=== PATIENT | male | born 1945 | race Caucasian/White ===

== ENCOUNTER 2021-03-12 11:54 | Inpatient (IN) ==
[2021-03-12] MEDS ORDERED: Miconazole 2% ointment 141 APPL/141 GM TUBE TP PRN (18:03)
[2021-03-12] MEDS ORDERED: Simethicone 80 MG TAB.CHEW PO PRN (18:03)
[2021-03-12] MEDS ORDERED: *HR* Dextrose 50 % in Water (Vial) 50 ML VIAL IVP PRN (18:07)
[2021-03-12] MEDS ORDERED: Dextrose Gel 15 GM/37.5 ML TUBE PO PRN ×2 (18:07)
[2021-03-12] MEDS ORDERED: D5% in Water 1,000 ML IVC PRN (18:07)
[2021-03-12] MEDS: methocarbamoL 500 MG TABLET PO PRN (20:44)
[2021-03-12] MEDS: *HR* LORazepam 0.5 MG TABLET PO PRN (20:44)
[2021-03-12] MEDS: Gabapentin 100 MG CAPSULE PO SCH (20:44)
[2021-03-12] MEDS: Carbidopa/Levodopa 25/100 TABLET PO SCH ×2 (20:45→23:20)
[2021-03-12] MEDS ORDERED: Insulin DETEMIR 100 UNIT/ML per UNIT SUBQ ONE (21:00)
[2021-03-12] MEDS: Sennosides/Docusate Sodium TABLET PO PRN (22:47)
[2021-03-12] MEDS: traZODone 50 MG TABLET PO PRN (22:47)
[2021-03-12] MEDS: *HR* Pioglitazone 30 MG TABLET PO SCH (22:48)
[2021-03-12] MEDS: *HR* OxyCODONE Immed Rel 5 MG TABLET PO PRN (22:48)
[2021-03-12] MEDS: Venlafaxine XR (24 HR) 75 MG CAP.ER.24H PO SCH (22:48)
[2021-03-12] MEDS: *HR* Metformin 500 MG TABLET PO SCH (22:48)
[2021-03-12] MEDS: Melatonin 3 MG TABLET PO SCH (22:48)
[2021-03-13] MEDS: *HR* Enoxaparin 40 MG/0.4 ML SYRINGE SQ SCH (05:35)
[2021-03-13 05:44] LABS: Basophils % 0.5 %; Eosinophils # 0.6 K/mcL (0.0-0.6); Eosinophils % 6.7 %; Hematocrit 39.5 % (37.5-50.1); Hemoglobin 12.8 g/dL (12.9-16.9); Immature Granulocytes % 0.7 % (0-4); Lymphocytes # 2.2 K/mcL (0.6-4.6); Lymphocytes % 26.2 %; Mean Corpuscular HGB Conc 32.4 g/dL (31.6-35.5); Mean Corpuscular Hemoglobin 32.9 pg (28.0-33.3); Mean Corpuscular Volume 101.5 fL (83.0-100.0); Mean Platelet Volume 8.8 fL (9.4-12.4); Monocytes # 0.9 K/mcL (0.0-1.3); Monocytes % 10.6 %; Neutrophils # 4.6 K/mcL (1.6-8.9); Platelet Count 288 K/mcL (140-400); Red Blood Count 3.89 M/mcL (4.19-5.50); Red Cell Distribution Width 13.8 % (11.5-14.5); Segmented Neutrophils % 55.3 %; White Blood Count 8.2 K/mcL (4.3-11.1)
[2021-03-13 05:59] LABS: Calcium 9.3 mg/dL (8.6-10.3); Potassium 4.2 mEq/L (3.5-5.1)
[2021-03-13] MEDS: allopurinoL 300 MG TABLET PO SCH (08:50)
[2021-03-13] MEDS: Venlafaxine XR (24 HR) 150 MG CAP.ER.24H PO SCH (08:50)
[2021-03-13] MEDS: Aspirin Enteric Coated 81 MG Tablet PO SCH (08:50)
[2021-03-13] MEDS: *HR* Metformin 500 MG TABLET PO SCH ×2 (08:50→20:22)
[2021-03-13] MEDS: Multivit/Ca/Min/Fe/FA 1 TAB TABLET PO SCH (08:51)
[2021-03-13] MEDS: Carbidopa/Levodopa 25/100 TABLET PO SCH ×5 (08:51→23:22)
[2021-03-13] MEDS: Cholecalciferol (D-3) 1,000 UNIT (25MCG) TABLET PO SCH (08:51)
[2021-03-13] MEDS: Gabapentin 100 MG CAPSULE PO SCH ×2 (08:51→20:22)
[2021-03-13] MEDS: Insulin LISPRO 300 UNITS/3 ML VIAL SUBQ SCH ×3 (08:52→17:01)
[2021-03-13] MEDS: Insulin DETEMIR 100 UNIT/ML X5UNITS SUBQ SCH ×2 (08:52→20:20)
[2021-03-13] MEDS: Clotrimazole 1% CRM 15 GM TUBE TP SCH ×2 (08:53→21:19)
[2021-03-13] MEDS: Potassium Citrate 10 MEQ TABLET.ER PO SCH ×2 (08:53→21:20)
[2021-03-13] MEDS: *HR* OxyCODONE Immed Rel 5 MG TABLET PO PRN ×3 (10:58→23:22)
[2021-03-13] MEDS: Finasteride 5 MG TABLET PO SCH (17:00)
[2021-03-13] MEDS: Melatonin 3 MG TABLET PO SCH (20:21)
[2021-03-13] MEDS: *HR* Pioglitazone 30 MG TABLET PO SCH (20:21)
[2021-03-13] MEDS: methocarbamoL 500 MG TABLET PO PRN (20:22)
[2021-03-13] MEDS: Venlafaxine XR (24 HR) 75 MG CAP.ER.24H PO SCH (20:22)
[2021-03-13] MEDS: Sennosides/Docusate Sodium TABLET PO PRN (20:22)
[2021-03-13] MEDS: traZODone 50 MG TABLET PO PRN (23:23)
[2021-03-14] MEDS: *HR* Enoxaparin 40 MG/0.4 ML SYRINGE SQ SCH (06:18)
[2021-03-14] MEDS: Gabapentin 100 MG CAPSULE PO SCH ×2 (08:13→20:26)
[2021-03-14] MEDS: Potassium Citrate 10 MEQ TABLET.ER PO SCH ×2 (08:13→20:26)
[2021-03-14] MEDS: *HR* OxyCODONE Immed Rel 5 MG TABLET PO PRN ×3 (08:13→20:32)
[2021-03-14] MEDS: Carbidopa/Levodopa 25/100 TABLET PO SCH ×4 (08:14→20:26)
[2021-03-14] MEDS: Venlafaxine XR (24 HR) 150 MG CAP.ER.24H PO SCH (08:14)
[2021-03-14] MEDS: Aspirin Enteric Coated 81 MG Tablet PO SCH (08:14)
[2021-03-14] MEDS: allopurinoL 300 MG TABLET PO SCH (08:14)
[2021-03-14] MEDS: Cholecalciferol (D-3) 1,000 UNIT (25MCG) TABLET PO SCH (08:14)
[2021-03-14] MEDS: *HR* Metformin 500 MG TABLET PO SCH ×2 (08:14→20:26)
[2021-03-14] MEDS: Clotrimazole 1% CRM 15 GM TUBE TP SCH ×2 (08:15→20:33)
[2021-03-14] MEDS: Multivit/Ca/Min/Fe/FA 1 TAB TABLET PO SCH (08:15)
[2021-03-14] MEDS: Insulin LISPRO 300 UNITS/3 ML VIAL SUBQ SCH ×3 (08:16→16:30)
[2021-03-14] MEDS: Insulin DETEMIR 100 UNIT/ML X5UNITS SUBQ SCH ×2 (10:54→20:25)
[2021-03-14] MEDS: *HR* LORazepam 0.5 MG TABLET PO PRN (10:59)
[2021-03-14] MEDS: methocarbamoL 500 MG TABLET PO PRN (16:29)
[2021-03-14] MEDS: Finasteride 5 MG TABLET PO SCH (16:29)
[2021-03-14] MEDS: Venlafaxine XR (24 HR) 75 MG CAP.ER.24H PO SCH (20:26)
[2021-03-14] MEDS: *HR* Pioglitazone 30 MG TABLET PO SCH (20:26)
[2021-03-14] MEDS: Melatonin 3 MG TABLET PO SCH (20:26)
[2021-03-14] MEDS: Sennosides/Docusate Sodium TABLET PO PRN (20:32)
[2021-03-15] MEDS: Carbidopa/Levodopa 25/100 TABLET PO SCH ×5 (00:10→21:25)
[2021-03-15] MEDS: traZODone 50 MG TABLET PO PRN (00:12)
[2021-03-15] MEDS: *HR* Enoxaparin 40 MG/0.4 ML SYRINGE SQ SCH (05:48)
[2021-03-15] MEDS: Venlafaxine XR (24 HR) 150 MG CAP.ER.24H PO SCH (08:51)
[2021-03-15] MEDS: allopurinoL 300 MG TABLET PO SCH (08:51)
[2021-03-15] MEDS: Potassium Citrate 10 MEQ TABLET.ER PO SCH ×2 (08:51→21:25)
[2021-03-15] MEDS: Multivit/Ca/Min/Fe/FA 1 TAB TABLET PO SCH (08:51)
[2021-03-15] MEDS: *HR* OxyCODONE Immed Rel 5 MG TABLET PO PRN (08:51)
[2021-03-15] MEDS: Gabapentin 100 MG CAPSULE PO SCH ×2 (08:51→21:26)
[2021-03-15] MEDS: Cholecalciferol (D-3) 1,000 UNIT (25MCG) TABLET PO SCH (08:53)
[2021-03-15] MEDS: Aspirin Enteric Coated 81 MG Tablet PO SCH (08:53)
[2021-03-15] MEDS: *HR* Metformin 500 MG TABLET PO SCH ×2 (08:53→21:25)
[2021-03-15] MEDS: Insulin LISPRO 300 UNITS/3 ML VIAL SUBQ SCH ×3 (08:57→16:23)
[2021-03-15] MEDS: Insulin DETEMIR 100 UNIT/ML X5UNITS SUBQ SCH ×2 (08:59→21:26)
[2021-03-15] MEDS: Clotrimazole 1% CRM 15 GM TUBE TP SCH ×2 (12:55→21:26)
[2021-03-15] MEDS: Finasteride 5 MG TABLET PO SCH (16:20)
[2021-03-15] MEDS: Venlafaxine XR (24 HR) 75 MG CAP.ER.24H PO SCH (21:25)
[2021-03-15] MEDS: *HR* LORazepam 0.5 MG TABLET PO PRN (21:25)
[2021-03-15] MEDS: Melatonin 3 MG TABLET PO SCH (21:25)
[2021-03-15] MEDS: *HR* Pioglitazone 30 MG TABLET PO SCH (21:26)
[2021-03-16] MEDS: *HR* OxyCODONE Immed Rel 5 MG TABLET PO PRN (00:39)
[2021-03-16] MEDS: Sennosides/Docusate Sodium TABLET PO PRN (00:39)
[2021-03-16] MEDS: Carbidopa/Levodopa 25/100 TABLET PO SCH ×5 (00:40→20:24)
[2021-03-16] MEDS: *HR* Enoxaparin 40 MG/0.4 ML SYRINGE SQ SCH (05:46)
[2021-03-16 07:05] LABS: Hematocrit 38.2 % (37.5-50.1); Hemoglobin 12.5 g/dL (12.9-16.9); Mean Corpuscular HGB Conc 32.7 g/dL (31.6-35.5); Mean Corpuscular Hemoglobin 33.2 pg (28.0-33.3); Mean Corpuscular Volume 101.6 fL (83.0-100.0); Mean Platelet Volume 8.7 fL (9.4-12.4); Platelet Count 328 K/mcL (140-400); Red Blood Count 3.76 M/mcL (4.19-5.50); Red Cell Distribution Width 13.7 % (11.5-14.5); White Blood Count 8.1 K/mcL (4.3-11.1)
[2021-03-16 07:38] LABS: Calcium 9.8 mg/dL (8.6-10.3); Magnesium 2.3 mg/dL (1.6-2.6); Potassium 4.6 mEq/L (3.5-5.1)
[2021-03-16] MEDS: *HR* Metformin 500 MG TABLET PO SCH ×2 (09:26→20:24)
[2021-03-16] MEDS: Potassium Citrate 10 MEQ TABLET.ER PO SCH ×2 (09:26→20:24)
[2021-03-16] MEDS: Multivit/Ca/Min/Fe/FA 1 TAB TABLET PO SCH (09:26)
[2021-03-16] MEDS: Cholecalciferol (D-3) 1,000 UNIT (25MCG) TABLET PO SCH (09:26)
[2021-03-16] MEDS: allopurinoL 300 MG TABLET PO SCH (09:26)
[2021-03-16] MEDS: Gabapentin 100 MG CAPSULE PO SCH ×2 (09:26→20:24)
[2021-03-16] MEDS: Venlafaxine XR (24 HR) 150 MG CAP.ER.24H PO SCH (09:26)
[2021-03-16] MEDS: Aspirin Enteric Coated 81 MG Tablet PO SCH (09:26)
[2021-03-16] MEDS: Clotrimazole 1% CRM 15 GM TUBE TP SCH ×2 (09:27→20:26)
[2021-03-16] MEDS: Insulin LISPRO 300 UNITS/3 ML VIAL SUBQ SCH ×3 (09:42→17:12)
[2021-03-16] MEDS: Insulin DETEMIR 100 UNIT/ML X5UNITS SUBQ SCH ×2 (09:42→20:27)
[2021-03-16] MEDS: Finasteride 5 MG TABLET PO SCH (17:11)
[2021-03-16] MEDS ORDERED: NON-FORMULARY MEDICATION 1 EACH EACH (Alendronate Sodium 70 MG Tablet) PO SCH (18:03)
[2021-03-16] MEDS: Venlafaxine XR (24 HR) 75 MG CAP.ER.24H PO SCH (20:23)
[2021-03-16] MEDS: Melatonin 3 MG TABLET PO SCH (20:24)
[2021-03-16] MEDS: *HR* Pioglitazone 30 MG TABLET PO SCH (20:24)
[2021-03-17] MEDS: Sennosides/Docusate Sodium TABLET PO PRN ×2 (00:10→20:04)
[2021-03-17] MEDS: Carbidopa/Levodopa 25/100 TABLET PO SCH ×6 (00:10→23:15)
[2021-03-17] MEDS: *HR* Enoxaparin 40 MG/0.4 ML SYRINGE SQ SCH (06:01)
[2021-03-17] MEDS: *HR* OxyCODONE Immed Rel 5 MG TABLET PO PRN ×2 (06:05→23:15)
[2021-03-17] MEDS: Clotrimazole 1% CRM 15 GM TUBE TP SCH ×2 (08:11→20:09)
[2021-03-17] MEDS: Venlafaxine XR (24 HR) 150 MG CAP.ER.24H PO SCH (08:11)
[2021-03-17] MEDS: Gabapentin 100 MG CAPSULE PO SCH ×2 (08:11→20:04)
[2021-03-17] MEDS: Aspirin Enteric Coated 81 MG Tablet PO SCH (08:11)
[2021-03-17] MEDS: Multivit/Ca/Min/Fe/FA 1 TAB TABLET PO SCH (08:11)
[2021-03-17] MEDS: Potassium Citrate 10 MEQ TABLET.ER PO SCH ×2 (08:12→20:04)
[2021-03-17] MEDS: Cholecalciferol (D-3) 1,000 UNIT (25MCG) TABLET PO SCH (08:12)
[2021-03-17] MEDS: *HR* Metformin 500 MG TABLET PO SCH ×2 (08:12→20:05)
[2021-03-17] MEDS: allopurinoL 300 MG TABLET PO SCH (08:12)
[2021-03-17] MEDS: Insulin LISPRO 300 UNITS/3 ML VIAL SUBQ SCH ×3 (08:12→16:40)
[2021-03-17] MEDS: Insulin DETEMIR 100 UNIT/ML X5UNITS SUBQ SCH ×2 (11:53→20:07)
[2021-03-17] MEDS: Finasteride 5 MG TABLET PO SCH (16:40)
[2021-03-17] MEDS: *HR* LORazepam 0.5 MG TABLET PO PRN (20:04)
[2021-03-17] MEDS: *HR* Pioglitazone 30 MG TABLET PO SCH (20:04)
[2021-03-17] MEDS: Venlafaxine XR (24 HR) 75 MG CAP.ER.24H PO SCH (20:05)
[2021-03-17] MEDS: methocarbamoL 500 MG TABLET PO PRN (20:05)
[2021-03-17] MEDS: Melatonin 3 MG TABLET PO SCH (20:05)
[2021-03-17] MEDS: traZODone 50 MG TABLET PO PRN (23:15)
[2021-03-18] MEDS: *HR* Enoxaparin 40 MG/0.4 ML SYRINGE SQ SCH (06:15)
[2021-03-18] MEDS: *HR* Metformin 500 MG TABLET PO SCH ×2 (07:49→20:49)
[2021-03-18] MEDS: Carbidopa/Levodopa 25/100 TABLET PO SCH ×5 (07:49→23:17)
[2021-03-18] MEDS: Venlafaxine XR (24 HR) 150 MG CAP.ER.24H PO SCH (07:50)
[2021-03-18] MEDS: Cholecalciferol (D-3) 1,000 UNIT (25MCG) TABLET PO SCH (07:50)
[2021-03-18] MEDS: Gabapentin 100 MG CAPSULE PO SCH ×2 (07:50→20:49)
[2021-03-18] MEDS: Potassium Citrate 10 MEQ TABLET.ER PO SCH ×2 (07:50→20:50)
[2021-03-18] MEDS: Aspirin Enteric Coated 81 MG Tablet PO SCH (07:50)
[2021-03-18] MEDS: Multivit/Ca/Min/Fe/FA 1 TAB TABLET PO SCH (07:50)
[2021-03-18] MEDS: allopurinoL 300 MG TABLET PO SCH (07:50)
[2021-03-18] MEDS: Insulin LISPRO 300 UNITS/3 ML VIAL SUBQ SCH ×3 (07:53→17:15)
[2021-03-18] MEDS: *HR* OxyCODONE Immed Rel 5 MG TABLET PO PRN ×2 (08:17→23:17)
[2021-03-18] MEDS: Insulin DETEMIR 100 UNIT/ML X5UNITS SUBQ SCH ×2 (10:57→20:49)
[2021-03-18] MEDS: Clotrimazole 1% CRM 15 GM TUBE TP SCH ×2 (11:45→20:50)
[2021-03-18] MEDS: Finasteride 5 MG TABLET PO SCH (17:15)
[2021-03-18] MEDS: Melatonin 3 MG TABLET PO SCH (20:49)
[2021-03-18] MEDS: *HR* Pioglitazone 30 MG TABLET PO SCH (20:49)
[2021-03-18] MEDS: *HR* LORazepam 0.5 MG TABLET PO PRN (20:49)
[2021-03-18] MEDS: methocarbamoL 500 MG TABLET PO PRN (20:49)
[2021-03-18] MEDS: Venlafaxine XR (24 HR) 75 MG CAP.ER.24H PO SCH (20:50)
[2021-03-18] MEDS: Sennosides/Docusate Sodium TABLET PO PRN (20:52)
[2021-03-18] MEDS: traZODone 50 MG TABLET PO PRN (23:17)
[2021-03-19] MEDS: *HR* Enoxaparin 40 MG/0.4 ML SYRINGE SQ SCH (05:30)
[2021-03-19] MEDS: Insulin LISPRO 300 UNITS/3 ML VIAL SUBQ SCH ×3 (08:25→16:28)
[2021-03-19] MEDS: *HR* Metformin 500 MG TABLET PO SCH ×2 (08:26→22:08)
[2021-03-19] MEDS: Venlafaxine XR (24 HR) 150 MG CAP.ER.24H PO SCH (08:26)
[2021-03-19] MEDS: Insulin DETEMIR 100 UNIT/ML X5UNITS SUBQ SCH ×2 (08:26→22:24)
[2021-03-19] MEDS: Carbidopa/Levodopa 25/100 TABLET PO SCH ×4 (08:26→22:08)
[2021-03-19] MEDS: Aspirin Enteric Coated 81 MG Tablet PO SCH (08:26)
[2021-03-19] MEDS: Potassium Citrate 10 MEQ TABLET.ER PO SCH ×2 (08:27→22:06)
[2021-03-19] MEDS: allopurinoL 300 MG TABLET PO SCH (08:27)
[2021-03-19] MEDS: Gabapentin 100 MG CAPSULE PO SCH ×2 (08:27→22:09)
[2021-03-19] MEDS: Multivit/Ca/Min/Fe/FA 1 TAB TABLET PO SCH (08:27)
[2021-03-19] MEDS: Clotrimazole 1% CRM 15 GM TUBE TP SCH ×2 (08:27→22:09)
[2021-03-19] MEDS: Cholecalciferol (D-3) 1,000 UNIT (25MCG) TABLET PO SCH (08:27)
[2021-03-19] MEDS: Finasteride 5 MG TABLET PO SCH (16:25)
[2021-03-19] MEDS: *HR* OxyCODONE Immed Rel 5 MG TABLET PO PRN (16:25)
[2021-03-19] MEDS: Melatonin 3 MG TABLET PO SCH (22:05)
[2021-03-19] MEDS: *HR* Pioglitazone 30 MG TABLET PO SCH (22:06)
[2021-03-19] MEDS: Venlafaxine XR (24 HR) 75 MG CAP.ER.24H PO SCH (22:09)
[2021-03-19] MEDS: *HR* LORazepam 0.5 MG TABLET PO PRN (22:09)
[2021-03-20] MEDS: Carbidopa/Levodopa 25/100 TABLET PO SCH ×5 (02:41→21:14)
[2021-03-20] MEDS: Sennosides/Docusate Sodium TABLET PO PRN (04:36)
[2021-03-20] MEDS: *HR* Enoxaparin 40 MG/0.4 ML SYRINGE SQ SCH (04:36)
[2021-03-20] MEDS: *HR* OxyCODONE Immed Rel 5 MG TABLET PO PRN ×3 (04:36→21:12)
[2021-03-20 05:56] LABS: Hematocrit 34.9 % (37.5-50.1); Hemoglobin 11.5 g/dL (12.9-16.9); Mean Corpuscular Hemoglobin 33.2 pg (28.0-33.3); Mean Corpuscular Volume 100.9 fL (83.0-100.0); Mean Platelet Volume 8.5 fL (9.4-12.4); Platelet Count 403 K/mcL (140-400); Red Blood Count 3.46 M/mcL (4.19-5.50); Red Cell Distribution Width 13.5 % (11.5-14.5); White Blood Count 8.5 K/mcL (4.3-11.1)
[2021-03-20 06:19] LABS: Calcium 9.3 mg/dL (8.6-10.3); Magnesium 2.3 mg/dL (1.6-2.6); Potassium 4.2 mEq/L (3.5-5.1)
[2021-03-20] MEDS: allopurinoL 300 MG TABLET PO SCH (08:14)
[2021-03-20] MEDS: Cholecalciferol (D-3) 1,000 UNIT (25MCG) TABLET PO SCH (08:14)
[2021-03-20] MEDS: *HR* Metformin 500 MG TABLET PO SCH ×2 (08:14→21:11)
[2021-03-20] MEDS: Gabapentin 100 MG CAPSULE PO SCH ×2 (08:14→21:11)
[2021-03-20] MEDS: Potassium Citrate 10 MEQ TABLET.ER PO SCH ×2 (08:14→21:11)
[2021-03-20] MEDS: Aspirin Enteric Coated 81 MG Tablet PO SCH (08:15)
[2021-03-20] MEDS: Insulin DETEMIR 100 UNIT/ML X5UNITS SUBQ SCH ×2 (08:15→21:16)
[2021-03-20] MEDS: Insulin LISPRO 300 UNITS/3 ML VIAL SUBQ SCH ×3 (08:15→17:21)
[2021-03-20] MEDS: Multivit/Ca/Min/Fe/FA 1 TAB TABLET PO SCH (08:15)
[2021-03-20] MEDS: Venlafaxine XR (24 HR) 150 MG CAP.ER.24H PO SCH (08:15)
[2021-03-20] MEDS: Clotrimazole 1% CRM 15 GM TUBE TP SCH ×2 (08:16→21:15)
[2021-03-20] MEDS: methocarbamoL 500 MG TABLET PO PRN (12:56)
[2021-03-20] MEDS: Finasteride 5 MG TABLET PO SCH (17:20)
[2021-03-20] MEDS: Venlafaxine XR (24 HR) 75 MG CAP.ER.24H PO SCH (21:12)
[2021-03-20] MEDS: Melatonin 3 MG TABLET PO SCH (21:12)
[2021-03-20] MEDS: *HR* Pioglitazone 30 MG TABLET PO SCH (21:13)
[2021-03-20] MEDS: traZODone 50 MG TABLET PO PRN (21:13)
[2021-03-21] MEDS: Carbidopa/Levodopa 25/100 TABLET PO SCH ×5 (00:14→22:08)
[2021-03-21] MEDS: methocarbamoL 500 MG TABLET PO PRN ×2 (00:20→08:45)
[2021-03-21] MEDS: *HR* LORazepam 0.5 MG TABLET PO PRN (00:20)
[2021-03-21] MEDS: *HR* Enoxaparin 40 MG/0.4 ML SYRINGE SQ SCH (06:13)
[2021-03-21] MEDS: Sennosides/Docusate Sodium TABLET PO PRN (06:13)
[2021-03-21] MEDS: *HR* OxyCODONE Immed Rel 5 MG TABLET PO PRN ×3 (06:14→22:10)
[2021-03-21] MEDS: Venlafaxine XR (24 HR) 150 MG CAP.ER.24H PO SCH (08:44)
[2021-03-21] MEDS: Insulin DETEMIR 100 UNIT/ML X5UNITS SUBQ SCH ×2 (08:44→22:12)
[2021-03-21] MEDS: Aspirin Enteric Coated 81 MG Tablet PO SCH (08:45)
[2021-03-21] MEDS: Multivit/Ca/Min/Fe/FA 1 TAB TABLET PO SCH (08:45)
[2021-03-21] MEDS: allopurinoL 300 MG TABLET PO SCH (08:45)
[2021-03-21] MEDS: Cholecalciferol (D-3) 1,000 UNIT (25MCG) TABLET PO SCH (08:45)
[2021-03-21] MEDS: Gabapentin 100 MG CAPSULE PO SCH ×2 (08:45→22:07)
[2021-03-21] MEDS: *HR* Metformin 500 MG TABLET PO SCH ×2 (08:45→22:07)
[2021-03-21] MEDS: Potassium Citrate 10 MEQ TABLET.ER PO SCH ×2 (08:45→22:06)
[2021-03-21] MEDS: Insulin LISPRO 300 UNITS/3 ML VIAL SUBQ SCH ×3 (12:53→17:34)
[2021-03-21] MEDS: Clotrimazole 1% CRM 15 GM TUBE TP SCH ×2 (12:54→22:12)
[2021-03-21] MEDS: Finasteride 5 MG TABLET PO SCH (17:32)
[2021-03-21] MEDS: Venlafaxine XR (24 HR) 75 MG CAP.ER.24H PO SCH (22:06)
[2021-03-21] MEDS: *HR* Pioglitazone 30 MG TABLET PO SCH (22:08)
[2021-03-21] MEDS: traZODone 50 MG TABLET PO PRN (22:10)
[2021-03-21] MEDS: Melatonin 3 MG TABLET PO SCH (22:10)
[2021-03-22] MEDS: methocarbamoL 500 MG TABLET PO PRN ×3 (00:54→12:50)
[2021-03-22] MEDS: Carbidopa/Levodopa 25/100 TABLET PO SCH ×5 (00:54→21:21)
[2021-03-22] MEDS: *HR* Enoxaparin 40 MG/0.4 ML SYRINGE SQ SCH (06:27)
[2021-03-22] MEDS: Sennosides/Docusate Sodium TABLET PO PRN (06:28)
[2021-03-22] MEDS: *HR* OxyCODONE Immed Rel 5 MG TABLET PO PRN ×2 (06:35→12:50)
[2021-03-22] MEDS: allopurinoL 300 MG TABLET PO SCH (09:00)
[2021-03-22] MEDS: Multivit/Ca/Min/Fe/FA 1 TAB TABLET PO SCH (09:00)
[2021-03-22] MEDS: Aspirin Enteric Coated 81 MG Tablet PO SCH (09:00)
[2021-03-22] MEDS: Potassium Citrate 10 MEQ TABLET.ER PO SCH ×2 (09:00→21:22)
[2021-03-22] MEDS: Gabapentin 100 MG CAPSULE PO SCH ×2 (09:00→21:21)
[2021-03-22] MEDS: *HR* Metformin 500 MG TABLET PO SCH ×2 (09:00→21:22)
[2021-03-22] MEDS: Venlafaxine XR (24 HR) 150 MG CAP.ER.24H PO SCH (09:00)
[2021-03-22] MEDS: Cholecalciferol (D-3) 1,000 UNIT (25MCG) TABLET PO SCH (09:01)
[2021-03-22] MEDS: Insulin LISPRO 300 UNITS/3 ML VIAL SUBQ SCH ×3 (09:03→16:31)
[2021-03-22] MEDS: Insulin DETEMIR 100 UNIT/ML X5UNITS SUBQ SCH ×2 (09:08→21:23)
[2021-03-22] MEDS: Clotrimazole 1% CRM 15 GM TUBE TP SCH ×2 (09:08→21:22)
[2021-03-22] MEDS: Finasteride 5 MG TABLET PO SCH (16:26)
[2021-03-22] MEDS: *HR* Pioglitazone 30 MG TABLET PO SCH (21:21)
[2021-03-22] MEDS: Venlafaxine XR (24 HR) 75 MG CAP.ER.24H PO SCH (21:22)
[2021-03-22] MEDS: Melatonin 3 MG TABLET PO SCH (21:22)
[2021-03-23] MEDS: Carbidopa/Levodopa 25/100 TABLET PO SCH ×5 (00:17→20:57)
[2021-03-23] MEDS: *HR* Enoxaparin 40 MG/0.4 ML SYRINGE SQ SCH (05:25)
[2021-03-23] MEDS: Potassium Citrate 10 MEQ TABLET.ER PO SCH ×2 (08:23→20:58)
[2021-03-23] MEDS: Cholecalciferol (D-3) 1,000 UNIT (25MCG) TABLET PO SCH (08:23)
[2021-03-23] MEDS: Aspirin Enteric Coated 81 MG Tablet PO SCH (08:23)
[2021-03-23] MEDS: Gabapentin 100 MG CAPSULE PO SCH ×2 (08:24→20:58)
[2021-03-23] MEDS: Multivit/Ca/Min/Fe/FA 1 TAB TABLET PO SCH (08:24)
[2021-03-23] MEDS: *HR* Metformin 500 MG TABLET PO SCH ×2 (08:24→20:58)
[2021-03-23] MEDS: allopurinoL 300 MG TABLET PO SCH (08:24)
[2021-03-23] MEDS: Venlafaxine XR (24 HR) 150 MG CAP.ER.24H PO SCH (08:24)
[2021-03-23] MEDS: Clotrimazole 1% CRM 15 GM TUBE TP SCH (08:27)
[2021-03-23] MEDS: Insulin DETEMIR 100 UNIT/ML X5UNITS SUBQ SCH ×2 (08:37→20:58)
[2021-03-23] MEDS: Insulin LISPRO 300 UNITS/3 ML VIAL SUBQ SCH ×3 (08:38→16:59)
[2021-03-23] MEDS: Finasteride 5 MG TABLET PO SCH (16:59)
[2021-03-23] MEDS: *HR* Pioglitazone 30 MG TABLET PO SCH (20:58)
[2021-03-23] MEDS: Melatonin 3 MG TABLET PO SCH (20:58)
[2021-03-23] MEDS: Venlafaxine XR (24 HR) 75 MG CAP.ER.24H PO SCH (20:58)
[2021-03-23] MEDS: *HR* LORazepam 0.5 MG TABLET PO PRN (21:12)
[2021-03-24] MEDS: Clotrimazole 1% CRM 15 GM TUBE TP SCH ×3 (00:23→20:54)
[2021-03-24] MEDS: Carbidopa/Levodopa 25/100 TABLET PO SCH ×5 (00:25→20:53)
[2021-03-24] MEDS: *HR* Enoxaparin 40 MG/0.4 ML SYRINGE SQ SCH (04:46)
[2021-03-24] MEDS: Insulin LISPRO 300 UNITS/3 ML VIAL SUBQ SCH ×3 (08:04→18:19)
[2021-03-24] MEDS: Potassium Citrate 10 MEQ TABLET.ER PO SCH ×2 (08:06→20:53)
[2021-03-24] MEDS: Gabapentin 100 MG CAPSULE PO SCH ×2 (08:07→20:54)
[2021-03-24] MEDS: Venlafaxine XR (24 HR) 150 MG CAP.ER.24H PO SCH (08:07)
[2021-03-24] MEDS: Aspirin Enteric Coated 81 MG Tablet PO SCH (08:07)
[2021-03-24] MEDS: Cholecalciferol (D-3) 1,000 UNIT (25MCG) TABLET PO SCH (08:07)
[2021-03-24] MEDS: *HR* Metformin 500 MG TABLET PO SCH ×2 (08:07→20:54)
[2021-03-24] MEDS: allopurinoL 300 MG TABLET PO SCH (08:07)
[2021-03-24] MEDS: Multivit/Ca/Min/Fe/FA 1 TAB TABLET PO SCH (08:07)
[2021-03-24] MEDS: methocarbamoL 500 MG TABLET PO PRN ×2 (08:15→15:07)
[2021-03-24] MEDS: Insulin DETEMIR 100 UNIT/ML X5UNITS SUBQ SCH ×2 (08:15→20:54)
[2021-03-24] MEDS: *HR* OxyCODONE Immed Rel 5 MG TABLET PO PRN ×2 (08:15→15:07)
[2021-03-24] MEDS: Finasteride 5 MG TABLET PO SCH (18:18)
[2021-03-24] MEDS: *HR* Pioglitazone 30 MG TABLET PO SCH (20:53)
[2021-03-24] MEDS: Melatonin 3 MG TABLET PO SCH (20:53)
[2021-03-24] MEDS: Venlafaxine XR (24 HR) 75 MG CAP.ER.24H PO SCH (20:54)
[2021-03-25] MEDS: Carbidopa/Levodopa 25/100 TABLET PO SCH ×5 (00:24→20:48)
[2021-03-25] MEDS: *HR* OxyCODONE Immed Rel 5 MG TABLET PO PRN ×3 (00:29→21:00)
[2021-03-25] MEDS: *HR* Enoxaparin 40 MG/0.4 ML SYRINGE SQ SCH (05:37)
[2021-03-25] MEDS: Potassium Citrate 10 MEQ TABLET.ER PO SCH ×2 (07:23→20:48)
[2021-03-25] MEDS: allopurinoL 300 MG TABLET PO SCH (07:24)
[2021-03-25] MEDS: Gabapentin 100 MG CAPSULE PO SCH ×2 (07:24→20:48)
[2021-03-25] MEDS: Cholecalciferol (D-3) 1,000 UNIT (25MCG) TABLET PO SCH (07:24)
[2021-03-25] MEDS: Multivit/Ca/Min/Fe/FA 1 TAB TABLET PO SCH (07:24)
[2021-03-25] MEDS: Aspirin Enteric Coated 81 MG Tablet PO SCH (07:24)
[2021-03-25] MEDS: *HR* Metformin 500 MG TABLET PO SCH ×2 (07:24→20:48)
[2021-03-25] MEDS: Venlafaxine XR (24 HR) 150 MG CAP.ER.24H PO SCH (07:24)
[2021-03-25] MEDS: Insulin DETEMIR 100 UNIT/ML X5UNITS SUBQ SCH ×2 (07:26→21:01)
[2021-03-25] MEDS: methocarbamoL 500 MG TABLET PO PRN ×2 (07:31→21:00)
[2021-03-25] MEDS: Insulin LISPRO 300 UNITS/3 ML VIAL SUBQ SCH ×3 (12:54→17:05)
[2021-03-25] MEDS: Clotrimazole 1% CRM 15 GM TUBE TP SCH ×2 (12:57→20:49)
[2021-03-25] MEDS: Finasteride 5 MG TABLET PO SCH (17:04)
[2021-03-25] MEDS: *HR* Pioglitazone 30 MG TABLET PO SCH (20:48)
[2021-03-25] MEDS: Venlafaxine XR (24 HR) 75 MG CAP.ER.24H PO SCH (20:48)
[2021-03-25] MEDS: Melatonin 3 MG TABLET PO SCH (20:49)
[2021-03-25] MEDS: *HR* LORazepam 0.5 MG TABLET PO PRN (20:49)
[2021-03-26] MEDS: Carbidopa/Levodopa 25/100 TABLET PO SCH ×5 (02:28→20:00)
[2021-03-26 04:53] LABS: Basophils % 0.4 %; Eosinophils # 0.9 K/mcL (0.0-0.6); Eosinophils % 10.6 %; Hematocrit 36.5 % (37.5-50.1); Immature Granulocytes % 0.7 % (0-4); Lymphocytes # 1.9 K/mcL (0.6-4.6); Lymphocytes % 23.4 %; Mean Corpuscular HGB Conc 32.9 g/dL (31.6-35.5); Mean Corpuscular Hemoglobin 32.9 pg (28.0-33.3); Mean Platelet Volume 8.2 fL (9.4-12.4); Monocytes # 0.7 K/mcL (0.0-1.3); Monocytes % 9.2 %; Neutrophils # 4.5 K/mcL (1.6-8.9); Platelet Count 441 K/mcL (140-400); Red Blood Count 3.65 M/mcL (4.19-5.50); Segmented Neutrophils % 55.7 %; White Blood Count 8.1 K/mcL (4.3-11.1)
[2021-03-26 05:07] LABS: Calcium 8.8 mg/dL (8.6-10.3); Potassium 4.1 mEq/L (3.5-5.1)
[2021-03-26] MEDS: *HR* Enoxaparin 40 MG/0.4 ML SYRINGE SQ SCH (05:22)
[2021-03-26] MEDS: Aspirin Enteric Coated 81 MG Tablet PO SCH (07:53)
[2021-03-26] MEDS: Potassium Citrate 10 MEQ TABLET.ER PO SCH ×2 (07:53→20:01)
[2021-03-26] MEDS: Cholecalciferol (D-3) 1,000 UNIT (25MCG) TABLET PO SCH (07:53)
[2021-03-26] MEDS: Venlafaxine XR (24 HR) 150 MG CAP.ER.24H PO SCH (07:54)
[2021-03-26] MEDS: Gabapentin 100 MG CAPSULE PO SCH ×2 (07:54→20:01)
[2021-03-26] MEDS: allopurinoL 300 MG TABLET PO SCH (07:54)
[2021-03-26] MEDS: *HR* Metformin 500 MG TABLET PO SCH ×2 (07:54→20:01)
[2021-03-26] MEDS: Multivit/Ca/Min/Fe/FA 1 TAB TABLET PO SCH (07:55)
[2021-03-26] MEDS: Insulin LISPRO 300 UNITS/3 ML VIAL SUBQ SCH ×3 (07:55→16:55)
[2021-03-26] MEDS: Clotrimazole 1% CRM 15 GM TUBE TP SCH ×2 (07:57→20:01)
[2021-03-26] MEDS: Insulin DETEMIR 100 UNIT/ML X5UNITS SUBQ SCH ×2 (08:14→20:00)
[2021-03-26] MEDS: Finasteride 5 MG TABLET PO SCH (16:55)
[2021-03-26] MEDS: Venlafaxine XR (24 HR) 75 MG CAP.ER.24H PO SCH (20:01)
[2021-03-26] MEDS: Melatonin 3 MG TABLET PO SCH (20:01)
[2021-03-26] MEDS: *HR* Pioglitazone 30 MG TABLET PO SCH (20:01)
[2021-03-26] MEDS ORDERED: *HR* OxyCODONE Immed Rel 5 MG TABLET PO PRN (20:55)
[2021-03-26] MEDS ORDERED: *HR* LORazepam 0.5 MG TABLET PO PRN (20:55)
[2021-03-27] MEDS: Carbidopa/Levodopa 25/100 TABLET PO SCH ×4 (01:43→15:57)
[2021-03-27] MEDS: *HR* Enoxaparin 40 MG/0.4 ML SYRINGE SQ SCH (05:58)
[2021-03-27 06:29] VITALS: BP 130/80; PULSE 64; RESP 16; TEMP 97.6; O2SAT 92
[2021-03-27] MEDS: Potassium Citrate 10 MEQ TABLET.ER PO SCH (07:54)
[2021-03-27] MEDS: Gabapentin 100 MG CAPSULE PO SCH (07:54)
[2021-03-27] MEDS: *HR* Metformin 500 MG TABLET PO SCH (07:54)
[2021-03-27] MEDS: Cholecalciferol (D-3) 1,000 UNIT (25MCG) TABLET PO SCH (07:54)
[2021-03-27] MEDS: Aspirin Enteric Coated 81 MG Tablet PO SCH (07:54)
[2021-03-27] MEDS: Venlafaxine XR (24 HR) 150 MG CAP.ER.24H PO SCH (07:54)
[2021-03-27] MEDS: allopurinoL 300 MG TABLET PO SCH (07:54)
[2021-03-27] MEDS: Multivit/Ca/Min/Fe/FA 1 TAB TABLET PO SCH (07:55)
[2021-03-27] MEDS: Insulin LISPRO 300 UNITS/3 ML VIAL SUBQ SCH ×2 (07:55→12:29)
[2021-03-27] MEDS: methocarbamoL 500 MG TABLET PO PRN (08:02)
[2021-03-27] MEDS: Insulin DETEMIR 100 UNIT/ML X5UNITS SUBQ SCH (08:11)
[2021-03-27] MEDS: Clotrimazole 1% CRM 15 GM TUBE TP SCH (08:12)
== END 2021-03-27 16:36 | disposition home health service (06) | DRG 560 ==
LOC: INPGRE 17:09
PROVIDERS: ADMIT Family Medicine; ATTEND Family Medicine